=== PATIENT | female | born 1995 | race Caucasian/White ===

== ENCOUNTER 2020-02-02 03:10 | Inpatient (IN) | payer BC ==
[2020-02-02] MEDS ORDERED: NS 0.9% 1000 ML** 3,000 ML IV ONE (03:42)
[2020-02-02] MEDS ORDERED: Ondansetron INJ* 2 MG/ML VIAL IV ONE (03:43)
--- NOTE | 2020-02-02 03:46 | ED ---
GI/ HPI - HPI Summary HPI Summary: 25 year old female presents to the ED with a chief complaint of vomiting every 30-40 minutes since 1800. Patient was drinking alcohol last night and woke up with a hangover. She reports feeling nausea throughout the day, gradually getting worse. Patient claims that anything she drinks gets vomited. Patient has DM 1 for which she takes insulin for. Her blood glucose has ran high today, >500. - History of Current Complaint Chief Complaint: EDNauseaVomitDiarrh Time Seen by Provider: 02/02/20 03:38 Stated Complaint: NAUSEA PER PT Hx Obtained From: Patient Onset/Duration: Started Hours Ago, Still Present Timing: Constant Severity: Worse Since: - 1800 Current Severity: Severe Pain Intensity: 0 Associated Signs and Symptoms: Positive: Nausea, Vomiting Additional Signs & Symptoms: Positive: Other: - DM 1 Aggravating Factor(s): Nothing - Allergy/Home Medications Allergies/Adverse Reactions: Allergies Allergy/AdvReac Type Severity Reaction Status Date / Time No Known Allergies Allergy Verified 02/02/20 04:10 Home Medications: Home Medications Insulin LISPRO* [HumaLOG 100 units/ml 3 ml VIAL *] 1 units SUBCUT .SEE INSYRUCTIONS 02/02/20 [History Confirmed 02/02/20] Levothyroxine TAB* [Synthroid 88 MCG TAB*] 88 mcg PO DAILY 02/02/20 [History Confirmed 02/02/20] PMH/Surg Hx/FS Hx/Imm Hx Endocrine/Hematology History: Reports: Hx Diabetes - 1 Infectious Disease History: No Infectious Disease History: Denies: Traveled Outside the [place] in Last 30 Days - Family History Known Family History: Positive: Diabetes - Social History Alcohol Use: Weekly Substance Use Type: Reports: None Hx Tobacco Use: No Review of Systems Negative: Fever Positive: Other - high blood glucose Positive: Vomiting, Nausea. Negative: Abdominal Pain Musculoskeletal: Negative Neurological/Mental Status: Negative Psychological: Normal All Other Systems Reviewed And Are Negative: Yes Physical Exam - Summary Physical Exam Summary: Appearance: Well-appearing, Well-nourished, lying in bed comfortably Skin: Warm, dry, no obvious rash Eyes: sclera anicteric, no conjunctival pallor HENT: mucous membranes moist, pharynx appears normal Neck: Supple, nontender Respiratory: Clear to auscultation, no signs of respiratory distress Cardiovascular: Normal S1, S2. No murmurs. Normal distal pulses in tibial and radial bilaterally. Abdomen: Soft, nontender, normal active bowel sounds present Musculoskeletal: Normal, Strength/ROM Intact Neurological: A&Ox3, awake and alert, mentation is normal, speech is fluent and appropriate Psychiatric: affect is normal, does not appear anxious or depressed Triage Information Reviewed: Yes Vital Signs On Initial Exam: Initial Vitals Temp Pulse Resp BP Pulse Ox 98.5 F 81 15 138/68 99 02/02/20 03:12 02/02/20 03:12 02/02/20 03:12 02/02/20 03:12 02/02/20 03:12 Vital Signs Reviewed: Yes Procedures - Sedation Patient Received Moderate/Deep Sedation with Procedure: No Diagnostics - Vital Signs Vital Signs Temp Pulse Resp BP Pulse Ox 02/02/20 03:12 98.5 F 81 15 138/68 99 - Laboratory Result Diagrams: 02/02/20 04:00 02/02/20 15:22 Lab Statement: Any lab studies that have been ordered have been reviewed, and results considered in the medical decision making process. GIGU Course/Dx - Course Course Of Treatment: 25 year old female presents to the ED with a chief complaint of vomiting every 30-40 minutes since 1800. Patient was drinking alcohol last night and woke up with a hangover. She reports feeling nausea throughout the day, gradually getting worse. Patient claims that anything she drinks gets vomited. Patient has DM 1 for which she takes insulin for. Her blood glucose has ran high today, >500. Physical exam is normal. Lab results show WBC 17.4, MCH 32, Sodium 133, potassium 5.2, chloride 97, CO2 9, anion gap 27, BUN 29, creatinine 1.45, glucose 547, calcium 10.4 and lipase <10. Diagnosis is DKA. During ED course, patient was given fluids, Zofran, acetomenaphen, and insulin. Discussed patient's care with Dr. Grimes, who accepts the patient into the ICU for admission. Patient understands and agrees with the plan. - Diagnoses Provider Diagnoses: DKA (diabetic ketoacidoses) - Physician Notifications Discussed Care Of Patient With: Liz Grimes - ICU Time Discussed With Above Provider: 04:40 Instructed by Provider To: Admit As Observation Admit/Transition Orders Completed By ED Provider: Yes - Critical Care Time Critical Care Time: 30-74 min Discharge ED - Sign-Out/Discharge Documenting (check all that apply): Patient Departure - admit All imaging exams completed and their final reports reviewed: Yes - Discharge Plan Condition: Stable Disposition: ADMITTED TO [facility] - Billing Disposition and Condition Condition: STABLE Disposition: Admitted to [facility] - Attestation Statements Document Initiated by Alizaibe: Yes Documenting Scribe: Chago Alex Provider For Whom Martina is Documenting (Include Credential): Dr. Vikram Monterroso Scribe Attestation: Chago Yoder, scribed for Dr. Vikram Monterroso on 02/03/20 at 0215. Scribe Documentation Reviewed: Yes Provider Attestation: The documentation as recorded by the alizaibChago sandoval accurately reflects the service I personally performed and the decisions made by Dr. Vikram shaw Status of Scribe Document: Viewed
[2020-02-02 04:14] LABS: ABS Lymphocytes 1.3 10^3/ul (1.0-4.8); ABS Monocytes 1.2 10^3/ul (0-0.8); ABS Neutrophils 14.8 10^3/ul (1.5-7.7); Eosinophil % 0.1 %; Hematocrit 45 % (35-47); Hemoglobin 14.8 g/dL (12.0-16.0); Lymphocyte % 7.6 %; Mean Corpuscular HGB Conc 33 g/dL (31-36); Mean Corpuscular Hemoglobin 32 pg (27-31); Mean Corpuscular Volume 96 fL (80-97); Platelet Count 263 10^3/uL (150-450); Red Blood Count 4.68 10^6 /uL (3.70-4.87); Red Cell Distribution Width 13 % (10-15); White Blood Count 17.4 10^3/uL (3.5-10.8)
[2020-02-02 04:31] LABS: ALT 28 U/L (7-52); Albumin 4.9 g/dL (3.2-5.2); Albumin/Globulin Ratio 1.8 (1-3); Alkaline Phosphatase 61 U/L (34-104); Blood Urea Nitrogen 29 mg/dL (6-24); Calcium 10.4 mg/dL (8.6-10.3); Chloride 97 mmol/L (101-111); EGFR African American 53.7 (>60); EGFR Non-African American 44.4 (>60); Globulin 2.8 g/dL (2-4); Sodium 133 mmol/L (135-145); Total Protein 7.7 g/dL (6.4-8.9)
[2020-02-02 04:37] LABS: Anion Gap 27 mmol/L (2-11); CO2 Carbon Dioxide 9 mmol/L (22-32); Glucose 547 mg/dL (70-100)
[2020-02-02 04:38] LABS: HCG Pregnancy < 0.60 mIU/mL
[2020-02-02 04:48] LABS: Potassium 5.2 mmol/L (3.5-5.0)
[2020-02-02] MEDS ORDERED: Insulin REGULAR(*) 1 UNITS UNIT IV PUSH ONE (04:56)
[2020-02-02] MEDS ORDERED: Al Hydrox/Mg Hydrox/Simet LIQ* 30 ML UDC PO PRN (04:59)
[2020-02-02] MEDS ORDERED: Ondansetron INJ* 2 MG/ML VIAL IV PRN (04:59)
[2020-02-02] MEDS ORDERED: Acetaminophen TAB* 325 MG PO PRN (04:59)
[2020-02-02] MEDS ORDERED: NS 0.9% 1000 ML** 1,000 ML IV SCH ×3 (05:00→15:15)
[2020-02-02] MEDS ORDERED: Insulin Infusion 100unit/100mL 100 UNIT/100 ML BAG IV SCH (05:00)
[2020-02-02 05:01] LABS: AST 26 U/L (13-39)
[2020-02-02 05:39] LABS: Urine Appearance Clear; Urine Bilirubin Negative (Negative); Urine Blood 1+ (Negative); Urine Color Straw; Urine Glucose 3+(>=500 mg/dL) (Negative); Urine Ketones 2+ (Negative); Urine Nitrite Negative (Negative); Urine Protein Negative (Negative); Urine Specific Gravity 1.026 (1.010-1.030); Urine Urobilinogen Negative (Negative)
[2020-02-02] MEDS ORDERED: PROCHLORPERAZINE INJ 5 MG/ML 2 ML VIAL ONE (05:42)
[2020-02-02] MEDS ORDERED: PROCHLORPERAZINE INJ 5 MG/ML 2 ML VIAL IV ONE (05:42)
[2020-02-02 05:49] LABS: Urine Bacteria Absent (Absent); Urine Red Blood Cell Trace(0-2/hpf) (Absent); Urine Squamous Epithelial Cell Present (Absent); Urine White Blood Cell Trace(0-5/hpf) (Absent)
[2020-02-02] MEDS ORDERED: Levothyroxine TAB* 88 MCG TAB PO SCH (06:00)
[2020-02-02 08:31] LABS: BUN/Creatinine Ratio 27.9 (8-20); EGFR African American 128.6 (>60); EGFR Non-African American 106.3 (>60); Potassium 3.1 mmol/L (3.5-5.0)
[2020-02-02 08:42] LABS: Calcium 5.5 mg/dL (8.6-10.3)
[2020-02-02 09:19] LABS: BUN/Creatinine Ratio 21.4 (8-20); Calcium 8.3 mg/dL (8.6-10.3); EGFR African American 72.3 (>60); EGFR Non-African American 59.8 (>60); Potassium 4.6 mmol/L (3.5-5.0)
[2020-02-02] MEDS ORDERED: Potassium Chlor TAB* 20 MEQ TAB.ER PO ONE (09:19)
--- NOTE | 2020-02-02 09:24 | HP ---
HISTORY AND PHYSICAL: DATE OF ADMISSION: 02/02/20 HISTORY OF PRESENT ILLNESS: Mayda Reyes is 25-year-old female with a known history of diabetes mellitus type 1, diagnosed when she was 17 years old. She came into the ED today with chief complaint of nausea and vomiting, which started the evening prior to her presentation, precisely around 6 o'clock. The patient said the vomiting is associated with abdominal pain and/or discomfort. The patient went out drinking on Monday evening after school. 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 She went drinking and had some couple of wine. She woke up on Monday with a hangover. Then, she went for lunch at [facility] and went back home. Then around 4 p.m., she started feeling nausea. Then by 6 p.m., she started throwing up for every 30 to 40 minutes, she would throw up and she said it was uncomfortable. Prior to that, she was drinking enough water because she knew that she used to have DKA and said she used to drink wine every weekend, but the wine she drank on Monday was not as much as she used to drink, so she was blaming the nausea and vomiting to food poisoning, that the food might be poisoned at [facility]. She said when she checked her glucose, it was very high more than 500, so she interrogated her insulin pump and she gave herself more insulin, but that did not help and since she was living by herself, she does not to pass out, so she decided to come to the ED early this morning. She denied fever, but states she had chills and rigors. Denied chest pain. Reported abdominal discomfort. PAST MEDICAL HISTORY: 1. Diabetes, type 1, on insulin pump. 2. Hypothyroidism. PAST SURGICAL HISTORY: Denied any past surgical history. MEDICATIONS: 1. She has insulin pump. 2. Also taking levothyroxine 88 mcg daily p.o. ALLERGIES: There are no known drug allergies. FAMILY HISTORY: Mom has hypothyroidism. Denied any medical history for the dad. Has 1 brother, no medical history. Family history also includes grandmother had breast cancer. SOCIAL HISTORY: The patient is the only daughter of the parents, studying veterinary medicine at [employer]. Drinks alcohol on weekends. Denied history of smoking. Denied use of illicit drugs. REVIEW OF SYSTEMS: There was no documented fever. There is no significant weight change. There was no double vision. There was ear discharge. She denied having rhinorrhea. No sore throat. No thyroid enlargement. Denied any chest pain. No orthopnea. No nocturnal dyspnea. There was positive abdominal pain with nausea and intractable vomiting. No dysuria, no frequency. There is no seizure, no loss of consciousness. No pruritus, no skin ulcer. Review of 14 systems completed. All others negative or as reported in the history and physical. PHYSICAL EXAMINATION GENERAL: A 25-year-old female in no apparent distress. Awake and alert. Well appearing, well nourished. Lying in bed comfortably. VITAL SIGNS: Temperature 98.5 Fahrenheit, pulse rate 81, respiratory rate 15, blood pressure 138/68, pulse oximetry 99%. HEENT: Eyes: Sclerae anicteric. No conjunctival pallor. Mucous membranes moist. Pharynx appears normal. NECK: Supple, nontender. RESPIRATORY: Clear to auscultation. No signs of respiratory distress. CARDIOVASCULAR: Normal S1 and S2. No murmurs. Normal distal pulses in tibial and radial bilaterally. No rubs, no gallops, no friction. ABDOMEN: Soft. Mild epigastric tenderness. Normal active bowel sounds present. Nondistended. No palpable masses. MUSCULOSKELETAL: Normal strength and range of motion intact. NEUROLOGIC: Awake and alert, oriented x3. Mentation is normal. Speech is fluent and appropriate. PSYCHIATRIC: Affect is normal. Does not appear anxious or depressed. Insight good. SKIN: Warm and dry. No obvious rash. LABORATORY RESULTS: Hematology: WBC elevated at 17.4, RBC 4.68, hemoglobin 14.8, hematocrit 45, MCV 96, MCH 32, MCHC 33, RDW 13, platelet count 263, MPV 9. Neutrophils 85.1, lymphocytes 7.6, monocytes 6.9, eosinophil 0.1, basophil 0.3, absolute neutrophil 14.8, absolute lymphocytes 1.3, absolute monocytes 1.2 , absolute eosinophil 0, absolute basophil 0, absolute nucleated RBC 0, nucleated RBC % 0. Chemistry: Sodium 133, potassium 5.2, chloride 97, carbon dioxide 9, anion gap 27, BUN 29, creatinine 1.45, estimated GFR non- 44.4. BUN and creatinine ratio 20, glucose 547, calcium 10.4, total bilirubin 1, AST 26. ALT 28, alkaline phosphatase 61, total protein 7.7, albumin 4.9, globulin 2.8, albumin/globulin ratio 1.8, lipase less than 10, beta hCG less than 0.60. Urine: Urine color, straw. Urine appearance, clear. Urine pH 6.0. Urine specific gravity 1.026, urine protein negative. Urine ketones 2+ A. Urine blood 1+ A. Urine nitrite negative. Urine bilirubin negative. Urobilinogen negative. Urine leukocyte esterase negative. Urine wbc's trace. Urine rbc's trace. Urine squamous epithelial cell present A. Urine bacteria absent. Urine glucose 3+. ASSESSMENT AND PLAN: A 25-year-old female with known history of type 1 diabetes, on insulin pump with a chief complaint of vomiting and nausea every 30 to 40 since 1800 hours. PLAN: Seemed to be in DKA. She will be admitted to the unit and started on insulin drip. For DKA, the patient already received 3 L of normal saline in the ED. I will continue normal saline at 275 mL/hour and monitored. Insulin drip started at 3.402 mL/hour. This will be continued until her anion gap closes. Anion gap now is 27. IV Zofran will be used to combat the nausea and vomiting. Pain control with Tylenol. Monitor BMP every 2 hours or as per protocol in the unit. Hypothyroidism. Continue levothyroxine 88 mcg p.o. daily. DVT prophylaxis, SCDs. Code status. Full code. Fluid, electrolytes will be repleted as needed. Nutrition, diabetic diet. TIME SPENT: On admission, 60 minutes was spent, greater than half of that time was spent face to face with the patient obtaining my history and physical. The other half of the time spent going over plan of care with the patient and implementing plan of care. Thank you much for the opportunity to partake in the healthcare need of this fariba lady. The cable armorer was notified by the ED doctor. [id number]/[facility] #: [id number] DEBBY
--- NOTE | 2020-02-02 09:42 | PN ---
<Liliana Gallardo - Last Filed: 02/02/20 09:49> Progress Note - Progress Note Date of Service: 02/02/20 Note: Progress Note -- Critical Care 24 hour events/significant events: - Patient admitted yesterday with DKA. Given 3L fluid in ED - BGs have improved and patient's symptoms have improved. - She no longer feels nauseous and denies abdominal pain. She just feels fatigued and is worried about her dog at home. ROS: negative except for pertinent positives mentioned above Tele: NSR Vitals: Vital Signs 02/02/20 02/02/20 02/02/20 03:12 05:47 05:48 Temperature 98.5 F 99.1 F Pulse Rate 81 102 98 Respiratory 15 16 Rate Blood Pressure 138/68 116/55 116/55 (mmHg) O2 Sat by Pulse 99 99 99 Oximetry 02/02/20 02/02/20 02/02/20 05:50 06:00 06:28 Temperature Pulse Rate 111 101 92 Respiratory 10 Rate Blood Pressure 96/53 (mmHg) O2 Sat by Pulse 97 100 99 Oximetry 02/02/20 02/02/20 02/02/20 06:30 06:35 06:45 Temperature 99.1 F Pulse Rate 100 98 91 Respiratory 22 16 20 Rate Blood Pressure 106/44 116/55 97/46 (mmHg) O2 Sat by Pulse 99 100 99 Oximetry 02/02/20 02/02/20 02/02/20 06:50 07:00 08:00 Temperature 99.6 F 98.2 F Pulse Rate 88 88 97 Respiratory 21 21 14 Rate Blood Pressure 97/46 93/49 83/42 (mmHg) O2 Sat by Pulse 99 100 98 Oximetry Intake and Output Last 24 Hours 01/31/20 02/01/20 02/02/20 02/03/20 05:59 05:59 06:59 06:59 Intake Total Output Total 0 Balance 0 Weight 149 lb 14.629 oz Intake: IV Fluids Output: Rodriguez 0 O2: RA Infusions: NS @ 175 Medications: Acetaminophen (Tylenol Tab*) 650 mg PO Q4H PRN PRN Reason: MILD PAIN or TEMP > 100.4 Al Hydrox/Mg Hydrox/Simethicone (Maalox Plus*) 30 ml PO Q6H PRN PRN Reason: INDIGESTION Insulin Human Regular (Insulin Regular Iv Infusion 1 Unit/Ml) 100 unit in 100 mls @ 3.402 mls/hr IV .(as Initial Rate) [facility]; Protocol Last Admin: 02/02/20 05:27 Dose: 3.402 mls/hr Sodium Chloride (Ns 0.9% 1000 Ml) 1,000 mls @ 175 mls/hr IV PER RATE [facility] Last Admin: 02/02/20 08:16 Dose: 175 mls/hr Levothyroxine Sodium (Synthroid Tab*) 88 mcg PO DAILY@0600 [facility] Last Admin: 02/02/20 08:06 Dose: 88 mcg Ondansetron HCl (Zofran Inj*) 4 mg IV Q4H PRN PRN Reason: NAUSEA/VOMITING Physical Exam: Constitutional: awake, alert, no distress, no diaphoresis Head: normocephalic, atraumatic Eyes: no pallor, no icterus ENT: moist mucous membranes Neck: soft, supple CVS: normal rate, regular, no murmur Chest/Resp: bilateral air entry, no rhales, no wheeze, no rhonchi, no acc muscle use Abdomen/GI: soft, nontender, nondistended, BS+ Ext/Msk: warm, pulses+, no edema Skin: intact, warm Neuro: awake, alert, orientedx3, moving all extremities, no gross focal deficit Psych: normal affect Labs: Laboratory Results - last 24 hr 02/02/20 02/02/20 02/02/20 04:00 04:00 05:30 WBC 17.4 H RBC 4.68 Hgb 14.8 Hct 45 MCV 96 MCH 32 H MCHC 33 RDW 13 Plt Count 263 MPV 9.0 Neut % (Auto) 85.1 Lymph % (Auto) 7.6 Carter % (Auto) 6.9 Eos % (Auto) 0.1 Baso % (Auto) 0.3 Absolute Neuts (auto) 14.8 H Absolute Lymphs (auto) 1.3 Absolute Monos (auto) 1.2 H Absolute Eos (auto) 0.0 Absolute Basos (auto) 0.0 Absolute Nucleated RBC 0.0 Nucleated RBC % 0.0 Sodium 133 L Potassium 5.2 H Chloride 97 L Carbon Dioxide 9 L* Anion Gap 27 H BUN 29 H Creatinine 1.45 H Est GFR ( Amer) 53.7 Est GFR (Non-Af Amer) 44.4 BUN/Creatinine Ratio 20.0 Glucose 547 H* POC Glucose (mg/dL) Glucose Meter Confirm Calcium 10.4 H Total Bilirubin 1.00 AST 26 ALT 28 Alkaline Phosphatase 61 Total Protein 7.7 Albumin 4.9 Globulin 2.8 Albumin/Globulin Ratio 1.8 Lipase < 10 L Beta HCG, Quant < 0.60 Urine Color Straw Urine Appearance Clear Urine pH 6.0 Ur Specific [place] 1.026 Urine Protein Negative Urine Ketones 2+ A Urine Blood 1+ A Urine Nitrate Negative Urine Bilirubin Negative Urine Urobilinogen Negative Ur Leukocyte Esterase Negative Urine WBC (Auto) Trace(0-5/hpf) Urine RBC (Auto) Trace(0-2/hpf) Ur Squamous Epith Cells Present A Urine Bacteria Absent Urine Glucose 3+(>=500 mg/dl) A 02/02/20 02/02/20 02/02/20 05:37 06:38 07:03 WBC RBC Hgb Hct MCV MCH MCHC RDW Plt Count MPV Neut % (Auto) Lymph % (Auto) Carter % (Auto) Eos % (Auto) Baso % (Auto) Absolute Neuts (auto) Absolute Lymphs (auto) Absolute Monos (auto) Absolute Eos (auto) Absolute Basos (auto) Absolute Nucleated RBC Nucleated RBC % Sodium Potassium Chloride Carbon Dioxide Anion Gap BUN Creatinine Est GFR ( Amer) Est GFR (Non-Af Amer) BUN/Creatinine Ratio Glucose POC Glucose (mg/dL) 402 H* 253 H Glucose Meter Confirm 359 H Calcium Total Bilirubin AST ALT Alkaline Phosphatase Total Protein Albumin Globulin Albumin/Globulin Ratio Lipase Beta HCG, Quant Urine Color Urine Appearance Urine pH Ur Specific [place] Urine Protein Urine Ketones Urine Blood Urine Nitrate Urine Bilirubin Urine Urobilinogen Ur Leukocyte Esterase Urine WBC (Auto) Urine RBC (Auto) Ur Squamous Epith Cells Urine Bacteria Urine Glucose 02/02/20 02/02/20 08:02 08:53 WBC RBC Hgb Hct MCV MCH MCHC RDW Plt Count MPV Neut % (Auto) Lymph % (Auto) Carter % (Auto) Eos % (Auto) Baso % (Auto) Absolute Neuts (auto) Absolute Lymphs (auto) Absolute Monos (auto) Absolute Eos (auto) Absolute Basos (auto) Absolute Nucleated RBC Nucleated RBC % Sodium 140 136 Potassium 3.1 L D 4.6 D Chloride 120 H 111 Carbon Dioxide 8 L* 11 L* Anion Gap 12 H 14 H BUN 19 24 Creatinine 0.68 1.12 H Est GFR ( Amer) 128.6 72.3 Est GFR (Non-Af Amer) 106.3 59.8 BUN/Creatinine Ratio 27.9 H 21.4 H Glucose 225 H 277 H POC Glucose (mg/dL) Glucose Meter Confirm Calcium 5.5 L* 8.3 L Total Bilirubin AST ALT Alkaline Phosphatase Total Protein Albumin Globulin Albumin/Globulin Ratio Lipase Beta HCG, Quant Urine Color Urine Appearance Urine pH Ur Specific [place] Urine Protein Urine Ketones Urine Blood Urine Nitrate Urine Bilirubin Urine Urobilinogen Ur Leukocyte Esterase Urine WBC (Auto) Urine RBC (Auto) Ur Squamous Epith Cells Urine Bacteria Urine Glucose Imaging: None Assessment: 25F with known medical history of diabetes type 1 and hypothyroidism , presents on 02/02/20 with complaints of vomiting every 30-40 mins since 1800 on 01/31. She was out drinking on monday, felt hungover monday but did not start feeling sick until 1600. Her BGs were elevated and nonresponsive to her insulin. BG on arrival to ED was 547. Given 3L fluid and started on insulin drip. - DKA - Hypothyroidism Plan: Neuro- - No active issues -Delirium prec; avoid BDZ CVS- - No active issues -Maintain MAP>65 Resp- - No active issues -Keep sat>92% - Aspiration prec, Pulmonary Toilet ID- - No active issues - Goal temp<101 GI- -Nutrition: Consistent carb diet -GI prophylaxis not indicated Renal- -strict I/O, replete to keep K>4, Mg>2 - Voiding Heme- - No active issues Endo- - DKA: acute. - Maintain BG per DKA protocol. - Continue NS @ 175 - Continue insulin drip until anion gap closed - Type 1 DM, she usually has a pump with a basal rate as well as boluses as needed - BMP q4hr until stable Musculsk- pressure ulcer prophylaxis.OOB Wounds- none Nutrition- Consistent carb DVT prophylaxis: NA GI prophylaxis: NA Disposition: Patient requires Critical Care/ICU for DKA management Patient clinical status: Stable Code Status: FULL Total Critical Care time is 30minutes <Liz Grimes - Last Filed: 02/02/20 16:58> Progress Note - Progress Note Note: 25 y o f with DM-1 a/w DKA after recent ETOH abuse and non-compliance with Insulin. Pt was admitted to ICU this am and started on Insulin drip after IVF. Pt closed AG few hrs back, long acting Insulin was administered. Will stop drip as per protocol and monitor closely in ICU. She had meds at home to resume when d/pushpa. She is well educated about her diabetes management and f/u with Endo.
[2020-02-02] MEDS ORDERED: D5NS 0.9% 1000 ML BAG* 1,000 ML IV SCH ×3 (12:00→13:00)
[2020-02-02 12:26] LABS: BUN/Creatinine Ratio 21.5 (8-20); Calcium 8.2 mg/dL (8.6-10.3); EGFR African American 76.2 (>60); Potassium 4.7 mmol/L (3.5-5.0)
[2020-02-02] MEDS ORDERED: Insulin GLARGINE(*) 1 UNITS UNIT SUBCUT SCH (13:00)
[2020-02-02 17:26] LABS: BUN/Creatinine Ratio 18.8 (8-20); Calcium 8.5 mg/dL (8.6-10.3); EGFR African American 72.3 (>60); EGFR Non-African American 59.8 (>60); Potassium 4.7 mmol/L (3.5-5.0)
[2020-02-02 18:11] VITALS: BP 114/64
--- NOTE | 2020-02-02 18:27 | DS ---
<Liliana Gallardo - Last Filed: 02/02/20 18:21> AGAINST MEDICAL ADVICE DISCHARGE DATE OF ADMISSION: 02/02/2020 DATE OF DISCHARGE: 02/02/2020 DISPOSITION/CONDITION: Discharge to home in guarded condition- AMA DISCHARGE DIAGNOSES: 1. DKA 2. Hypothyroidism HOSPITAL COURSE: 25F with known medical history of diabetes type 1 and hypothyroidism, presents on 02/02/20 with complaints of vomiting every 30-40 mins since 1800 on 01/31. She was out drinking on monday, felt hungover monday but did not start feeling sick until 1600. Her BGs were elevated and nonresponsive to her insulin. BG on arrival to ED was 547. Given 3L fluid and started on insulin drip. Throughout the day, anion gap had closed but still remained with difficulty controlled her blood sugars. Started lantus but BGs remained high. IVF and insulin drip were titrated. However, patient has been expressing concerns and severe anxiety to having to stay here another night. She wants to go home and take care of her dog since she lives alone. She is also anxious about the fact that she has finals and needs to prepare for them. Unable to convince patient to stay. We discussed risks of leaving AMA, especially since she is still receiving active treatment for DKA. She understands all risks and agrees to return to the hospital should she have a return of symptoms. DISCHARGE MEDICATIONS: 1. Insulin pump- no changes made to regimen 2. Levothyroxine 88mcg daily <Liz Grimes - Last Filed: 02/05/20 14:55> Attending physician attestation: 25 y o f with DM on Insulin admitted with DKA. Pt was initiated on DKA protocol. Pt improved, AG closed, long acting Insulin given, pt had lunch, sugars elevated again, AG opened again, was placed back on drip. Pt signed out AMA inspite of explaining concern with DKA and complications associated with it. See above for more details.
== END 2020-02-02 18:30 | disposition left against medical advice (07) | DRG 420 ==
LOC: ED 03:10 → ICU 05:16
PROVIDERS: ADMIT Family Medicine; ATTEND Internal Medicine
DX: E10.10 Type 1 diabetes mellitus with ketoacidosis without coma (principal); E03.9 Hypothyroidism, unspecified; Z96.41 Presence of insulin pump (external) (internal); Z79.4 Long term (current) use of insulin; Z79.890 Hormone replacement therapy; Z91.14 Patient's other noncompliance with medication regimen
CPT/HCPCS: 36415; 80048; 80053; 81003; 81015; 82947; 83690; 84702; 85025; 87086; 87641; 96374; 99285; J0780; J2405